=== PATIENT | female | born 1975 | race Caucasian/White ===

== ENCOUNTER 2019-01-11 17:44 | Emergency (ER) | payer OTHER ==
[~2019-01-11] VITALS: Ht 175.3 cm; Wt 122.0 kg
[2019-01-11 18:43] LABS: Basophils # (auto) 0 uL; Basophils % (auto) 0.5 % (0.0-2.0); Eosinophils # (auto) 0.2 uL; Eosinophils % (auto) 1.9 % (0.0-7.0); Hematocrit 40.4 % (36.0-46.0); Hemoglobin 13.4 g/dL (12.2-16.2); Lymphocytes # (auto) 2.4 uL; Lymphocytes % (auto) 28.8 % (10.0-50.0); Mean Corpuscular Hemoglobin 31.4 pg (28.0-32.0); Mean Corpuscular Hgb Conc. 33.1 g/dL (32.0-36.0); Mean Corpuscular Volume 94.7 fL (80.0-100.0); Monocytes # (auto) 0.8 uL; Monocytes % (auto) 9.6 % (0.0-12.0); Neutrophils # (auto) 4.9 uL; Neutrophils % (auto) 59.2 % (37.0-80.0); Nucleated Red Blood Cells % 0.1 %; Platelet Count (auto) 308 10^3/uL (140-450); Red Blood Cells 4.27 10^6/uL (4.0-5.20); Red Cell Distribution Width 14.1 % (11.8-14.3); White Blood Cell 8.3 10^3/uL (4.4-10.8)
[2019-01-11 18:46] LABS: Urine Bacteria FEW /hpf (None Seen); Urine Blood 1+ /uL (Negative); Urine Mucus FEW (None Seen); Urine Specific Gravity 1.022 (1.001-1.035); Urine WBC 24 /hpf (0 - 5)
[2019-01-11 19:09] LABS: Alanine Aminotransferase 32 U/L (13-56); Anion Gap 4 (5-15); Aspartate Aminotransferase 19 U/L (15-37); BUN/Creatinine Ratio 13.8; Blood Urea Nitrogen 15 mg/dL (7-18); Calcium 8.8 mg/dL (8.5-10.1); Carbon Dioxide 33 mmol/L (21-32); Chloride 100 mmol/L (98-107); GFR African American 70 mL/min; GFR Non-African American 58 mL/min; Glucose 71 mg/dL (74-106); Magnesium 2.2 mg/dL (1.6-2.6); Potassium 4.1 mmol/L (3.5-5.1); Sodium 137 mmol/L (136-145)
[2019-01-11 19:14] LABS: Alkaline Phosphatase 163 U/L (45-117); Bilirubin, Total 0.3 mg/dL (0.2-1.0); Total Protein 7.8 g/dL (6.4-8.2)
[2019-01-11] MEDS ORDERED: CIPROFLOXACIN HCL 500 MG TAB PO ONE (23:30)
[2019-01-11] MEDS ORDERED: MORPHINE SULFATE 4 MG/ML SYR/VIAL IV ONE (23:30)
[2019-01-11] MEDS ORDERED: SODIUM CHLORIDE 0.9% 1,000 ML IV ONE (23:30)
[2019-01-11] MEDS ORDERED: ONDANSETRON HCL 4 MG/2 ML VIAL IV ONE (23:30)
[2019-01-12 00:13] VITALS: BP 131/100
[2019-01-12] MEDS ORDERED: ONDANSETRON ODT 4 MG TAB PO ONE (00:30)
[2019-01-12] MEDS ORDERED: HYDROcodone-ACET 10/325MG TAB PO ONE (00:30)
== END 2019-01-12 00:44 | disposition home or self-care (01) ==
LOC: ER 17:44
DX: N39.0 Urinary tract infection, site not specified (principal); N26.1 Atrophy of kidney (terminal); R07.81 Pleurodynia
CPT/HCPCS: 36415; 71045; 74176; 80053; 81001; 83735; 84484; 85025; 85379; 93005; 99284; Q0162

== ENCOUNTER → 2019-08-23 | Emergency (ER) | payer OTHER ==
[~2019-08-23] VITALS: Ht 175.3 cm; Wt 116.1 kg
[~2019-08-23] MED LIST: ACETAMINOPHEN 500 MG TAB PO ONE; ASPI-404 PO; ATOM80CA PO; ATOR80TA PO; DIVA500T4 PO; FLUT110A INH; FLUT1SUS; FLUT250M2 INH; GABA-339 PO; HYDR25CA PO; LEVO75TA50 PO; LURA80TA PO; MONT5CHW17 PO; OXYB5TAB24 PO; PROP20TA73 PO; SERT50TA PO; SUMA50TA2 PO
[2019-08-23 23:07] LABS: Urine Bacteria FEW /hpf (None Seen); Urine Blood 2+ /uL (Negative); Urine Mucus FEW (None Seen); Urine Specific Gravity 1.025 (1.001-1.035); Urine WBC 1230 /hpf (0 - 5)
[2019-08-23 23:22] LABS: Basophils # (auto) 0 10 ^3/uL (0-0.2); Basophils % (auto) 0.3 % (0.0-2.0); Eosinophils # (auto) 0.2 10 ^3/uL (0-0.8); Eosinophils % (auto) 2.1 % (0.0-7.0); Hematocrit 45.7 % (36.0-46.0); Hemoglobin 14.9 g/dL (12.2-16.2); Lymphocytes % (auto) 25.2 % (10.0-50.0); Mean Corpuscular Hemoglobin 31.1 pg (28.0-32.0); Mean Corpuscular Hgb Conc. 32.5 g/dL (32.0-36.0); Mean Corpuscular Volume 95.5 fL (80.0-100.0); Monocytes # (auto) 0.5 10 ^3/uL (0-1.3); Monocytes % (auto) 6.9 % (0.0-12.0); Neutrophils # (auto) 5.2 10 ^3/uL (1.6-8.6); Neutrophils % (auto) 65.5 % (37.0-80.0); Nucleated Red Blood Cells % 0.1 %; Platelet Count (auto) 341 10^3/uL (140-450); Red Blood Cells 4.78 10^6/uL (4.0-5.20); Red Cell Distribution Width 14.4 % (11.8-14.3); White Blood Cell 7.9 10^3/uL (4.4-10.8)
[2019-08-23 23:45] LABS: BUN/Creatinine Ratio 9.9; Calcium 8.8 mg/dL (8.5-10.1); Potassium 3.8 mmol/L (3.5-5.1)
[2019-08-23 23:47] LABS: Bilirubin, Total 0.3 mg/dL (0.2-1.0); Total Protein 8.7 g/dL (6.4-8.2)
[2019-08-24 05:50] VITALS: BP 130/65
== END | disposition home or self-care (01) ==
LOC: ER 18:51
DX: N39.0 Urinary tract infection, site not specified (principal); I12.9 Hypertensive chronic kidney disease with stage 1 through stage 4 chronic kidney disease, or unspecified chronic kidney disease; N18.9 Chronic kidney disease, unspecified; J44.9 Chronic obstructive pulmonary disease, unspecified; E78.5 Hyperlipidemia, unspecified; Z86.73 Personal history of transient ischemic attack (TIA), and cerebral infarction without residual deficits
CPT/HCPCS: 36415; 80053; 81001; 83880; 85025

== ENCOUNTER 2019-08-31 14:29 | Emergency (ER) | payer OTHER ==
[~2019-08-31] VITALS: Ht 170.2 cm; Wt 95.3 kg
[~2019-08-31 14:29] MED LIST changes: -ACETAMINOPHEN 500 MG TAB PO ONE
[2019-08-31 16:29] LABS: Basophils # (auto) 0 10 ^3/uL (0-0.2); Basophils % (auto) 0.5 % (0.0-2.0); Eosinophils # (auto) 0.2 10 ^3/uL (0-0.8); Eosinophils % (auto) 1.7 % (0.0-7.0); Hematocrit 41.8 % (36.0-46.0); Hemoglobin 13.7 g/dL (12.2-16.2); Lymphocytes # (auto) 1.4 10 ^3/uL (0.4-5.4); Lymphocytes % (auto) 15.4 % (10.0-50.0); Mean Corpuscular Hemoglobin 30.7 pg (28.0-32.0); Mean Corpuscular Hgb Conc. 32.7 g/dL (32.0-36.0); Monocytes # (auto) 0.5 10 ^3/uL (0-1.3); Monocytes % (auto) 5.5 % (0.0-12.0); Neutrophils % (auto) 76.9 % (37.0-80.0); Nucleated Red Blood Cells % 0.1 %; Platelet Count (auto) 393 10^3/uL (140-450); Red Blood Cells 4.45 10^6/uL (4.0-5.20); Red Cell Distribution Width 14.8 % (11.8-14.3); White Blood Cell 9.1 10^3/uL (4.4-10.8)
[2019-08-31 16:43] LABS: Albumin 2.7 g/dL (3.4-5.0); Calcium 8.9 mg/dL (8.5-10.1); Potassium 4.2 mmol/L (3.5-5.1)
[2019-08-31 16:47] LABS: BUN/Creatinine Ratio 14.5; Bilirubin, Total 0.3 mg/dL (0.2-1.0); Total Protein 8.3 g/dL (6.4-8.2)
[2019-08-31] MEDS ORDERED: ONDANSETRON HCL 4 MG/2 ML VIAL IV ONE (23:45)
[2019-08-31] MEDS ORDERED: HYDROmorphone HCL 2 MG/ML VL IV ONE (23:45)
[2019-09-01 00:27] LABS: Basophils # (auto) 0 10 ^3/uL (0-0.2); Basophils % (auto) 0.3 % (0.0-2.0); Eosinophils # (auto) 0.1 10 ^3/uL (0-0.8); Eosinophils % (auto) 1.4 % (0.0-7.0); Hematocrit 39.7 % (36.0-46.0); Lymphocytes # (auto) 1.6 10 ^3/uL (0.4-5.4); Lymphocytes % (auto) 21.2 % (10.0-50.0); Mean Corpuscular Hemoglobin 30.5 pg (28.0-32.0); Mean Corpuscular Hgb Conc. 32.8 g/dL (32.0-36.0); Monocytes # (auto) 0.5 10 ^3/uL (0-1.3); Monocytes % (auto) 6.1 % (0.0-12.0); Neutrophils # (auto) 5.4 10 ^3/uL (1.6-8.6); Nucleated Red Blood Cells % 0.1 %; Platelet Count (auto) 397 10^3/uL (140-450); Red Blood Cells 4.27 10^6/uL (4.0-5.20); Red Cell Distribution Width 14.3 % (11.8-14.3); White Blood Cell 7.6 10^3/uL (4.4-10.8)
[2019-09-01 00:43] LABS: Albumin 2.5 g/dL (3.4-5.0); Anion Gap 8 (5-15); Blood Urea Nitrogen 13 mg/dL (7-18); Calcium 8.7 mg/dL (8.5-10.1); Carbon Dioxide 23 mmol/L (21-32); Chloride 106 mmol/L (98-107); Glucose 85 mg/dL (74-106); INR 0.97 (0.9-1.15); Magnesium 2.4 mg/dL (1.6-2.6); Partial Thromboplastin Time 30.8 sec (23.64-32.05); Potassium 3.8 mmol/L (3.5-5.1); Sodium 137 mmol/L (136-145)
[2019-09-01 00:45] LABS: Alanine Aminotransferase 72 U/L (13-56); Aspartate Aminotransferase 47 U/L (15-37); BUN/Creatinine Ratio 18.3; GFR African American 114 mL/min; GFR Non-African American 94 mL/min
[2019-09-01 00:50] LABS: Alkaline Phosphatase 216 U/L (45-117); Bilirubin, Total 0.3 mg/dL (0.2-1.0); Total Protein 7.8 g/dL (6.4-8.2)
[2019-09-01 01:02] LABS: Uric Acid 4.1 mg/dL (2.6-6.0)
[2019-09-01] MEDS ORDERED: FUROSEMIDE 20 MG/2 ML VIAL IV ONE (01:30)
[2019-09-01 02:00] VITALS: BP 144/88
== END 2019-09-01 04:22 | disposition home or self-care (01) ==
LOC: EDBD 14:29 → EDSEX 14:29 → ER 14:29
DX: R60.9 Edema, unspecified (principal); M79.602 Pain in left arm; M79.601 Pain in right arm; E88.09 Other disorders of plasma-protein metabolism, not elsewhere classified; I50.9 Heart failure, unspecified; E66.01 Morbid (severe) obesity due to excess calories; Z68.32 Body mass index [BMI] 32.0-32.9, adult
CPT/HCPCS: 36415; 80053; 83735; 83880; 84484; 84550; 85025; 85610; 85730; 93005; 96374; 96375; 99285; J1170; J1940; J2405